=== PATIENT | male | born 1990 | race Two or more races ===

== ENCOUNTER 2025-11-01 20:20 | Emergency (ER) | payer MEDICAID, OTHER ==
[~2025-11-01] VITALS: Ht 188 cm; Wt 77.1 kg
[2025-11-01 20:30] VITALS: BP 128/72; PULSE 90; RESP 24; TEMP 98.6; O2SAT 96
--- NOTE | 2025-11-01 20:39 | ED.PDOC ---
History of Present Illness HPI Comments Patient brought in by EMS for ETOH intoxication. Upon questioning. Patient was very upset with the EMT, when trying to be questioned on what his complaints are and if he wanted to be seen, patient would not acknowledge. Patient states he would rather not be seen today. Patient witnessed walking lesion in the emergency department after signing AMA form Chief Complaint: ETOH Time Seen by MD: 20:33 Reviewed Notes: Nurses Notes Information Source: Patient, Emergency Med Personnel Unable to Obtain due to: Altered Mental Status Physical Exam General Appearance: No Apparent Distress, Normal HEENT: Normal ENT Inspection, Pharynx Normal, TMs Normal Neck: Full Range of Motion, Non-Tender, Normal, Normal Inspection Respiratory: Chest Non-Tender, Lungs Clear, No Accessory Muscle Use, No Respiratory Distress, Normal Breath Sounds Cardiovascular: No Edema, No JVD, No Murmur, No Gallop, Normal Peripheral Pulses, Regular Rate/Rhythm Breast Exam: Deferred Gastrointestinal: No Organomegaly, Non Tender, No Pulsatile Mass, Normal Bowel Sounds, Soft Genitalia: Deferred Pelvic: Deferred Rectal: Deferred Extremities: No calf tenderness, Normal capillary refill, Normal inspection, Normal range of motion, Non-tender, No pedal edema Musculoskeletal : Apperance: Normal Neurologic: Alert, oral and maxillofacial surgeon II-XII nml as Tested, No Motor Deficits, Normal Affect, Normal Mood, No Sensory Deficits Cerebellar Function: Normal Reflexes: Normal Skin: Dry, Normal Color, Warm Lymphatic: No Adenopathy Was a procedure done? Was a procedure done?: No Differential Dx Considerations may include: ETOH intoxication X-Ray, Labs, Meds, VS Comment Patient signed out AMA Time of 1ST Reevaluation: 20:39 Reevaluation 1ST: Unchanged Patient Education/Counseling: Diagnosis, Treatment Family Education/Counseling: Diagnosis, Treatment Departure 1 Departure Time of Disposition: 20:38 Impression: Primary Impression: Left against medical advice Disposition: 07 LEFT AGAINST MEDICAL ADVICE Condition: Stable Discharged With: Self Critical Care Note Critical Care Time?: No Stability Stability form required: No Heart Score Heart Score: Heart Score Response (Comments) Value History N/A 0 EKG N/A 0 Age N/A 0 Risk Factors N/A 0 Troponin N/A 0 Total 0 MORIS ALEXANDER Nov 01, 2025 20:39
== END 2025-11-02 02:21 | disposition left against medical advice (07) ==
LOC: EDBD 20:20 → ER 20:20
DX: F10.129 Alcohol abuse with intoxication, unspecified (principal); Y90.9 Presence of alcohol in blood, level not specified